=== PATIENT | female | born 1970 | race Caucasian/White ===

== ENCOUNTER 2020-10-18 08:05 | Emergency (ER) | payer MEDICAID, SELFPAY ==
[~2020-10-18] VITALS: Ht 154.9 cm; Wt 61.2 kg
[2020-10-18 08:08] VITALS: Ht 154.9 cm; Wt 61.2 kg
[2020-10-18 10:50] VITALS: BP 139/100
== END 2020-10-18 10:50 | disposition home or self-care (01) ==
LOC: ED 08:05
DX: U07.1 COVID-19 (principal); F41.9 Anxiety disorder, unspecified